=== PATIENT | female | born 1950 | race Two or more races ===

== ENCOUNTER → 2018-05-23 | Outpatient (CLI) | payer OTHER | END | disposition home or self-care (01) | LOC: LAB 08:00 | DX: Z01.818 Encounter for other preprocedural examination (principal) ==

== ENCOUNTER 2018-06-02 10:39 | Inpatient (IN) | payer OTHER ==
[2018-06-02] MEDS: LACTATED RINGER'S 1,000 ML IV* (10:00)
[2018-06-02] MEDS: TRANEXAMIC ACID 1,000 MG in NS 100 ML PRE-OP X1 IVPB (10:00)
[2018-06-02] MEDS: TRANEXAMIC ACID 1,000 MG in NS 100 ML INTRA-OP X1 IVPB (10:00)
[2018-06-02] MEDS: CEFAZOLIN 2 GM/50 ML (PMX) 50 ML IVPB (10:00)
[~2018-06-02 10:39] MED LIST: BUPIVACAINE 0.75%/DEXT (SPINAL) 2 ML INJ
[2018-06-02] MEDS: ONDANSETRON 4 MG INJ IV ×2 (12:30→17:55)
[2018-06-02] MEDS ORDERED: NALOXONE (0.4 MG/ML) INJ IV (12:30)
[2018-06-02] MEDS ORDERED: SENNA/DOCUSATE NA (8.6MG/50MG) TAB PO (12:30)
[2018-06-02] MEDS ORDERED: BETHANECHOL 25 MG TAB PO (12:30)
[2018-06-02] MEDS ORDERED: NA PHOSPHATE/BIPHOS 133 ML ENEMA PR (12:30)
[2018-06-02] MEDS ORDERED: MAGNESIUM HYDROXIDE 30ML CUP PO (12:30)
[2018-06-02] MEDS ORDERED: oxyCODONE 5 MG TAB PO ×2 (12:30)
[2018-06-02] MEDS ORDERED: DIPHENHYDRAMINE 50 MG INJ IV (12:30)
[2018-06-02] MEDS ORDERED: BISACODYL 10 MG SUPP PR (12:30)
[2018-06-02] MEDS ORDERED: CEFAZOLIN 1 GM INJ (12:38)
[2018-06-02] MEDS ORDERED: GLYCOPYRROLATE 0.4 MG INJ (12:38)
[2018-06-02] MEDS ORDERED: NEOSTIGMINE 3 MG/3 ML SYRINGE (12:38)
[2018-06-02] MEDS ORDERED: ROCURONIUM 50 MG INJ (12:38)
[2018-06-02] MEDS ORDERED: PROPOFOL 20 ML (12:38)
[2018-06-02] MEDS ORDERED: MIDAZOLAM 1 MG/ML 2 ML INJ (12:39)
[2018-06-02] MEDS ORDERED: FENTAnyl 50 MCG/ML VIAL ×2 (12:39→14:58)
[2018-06-02] MEDS ORDERED: ONDANSETRON 4 MG INJ (12:41)
[2018-06-02] MEDS ORDERED: DEXAMETHASONE 4 MG/ML 1 ML INJ (12:41)
[2018-06-02] MEDS ORDERED: ROPIVACAINE 0.5 % 30 ML VIAL (12:47)
[2018-06-02] MEDS ORDERED: morphine SULFATE/PF (10 MG/10 ML) INJ (12:49)
[2018-06-02] MEDS ORDERED: EPINEPHrine 1 MG INJ (13:11)
[2018-06-02] MEDS: BACITRACIN 50000 UNITS INJ (15:09)
[2018-06-02] MEDS: POLYMYXIN B 500000 UNIT INJ (15:10)
[2018-06-02] MEDS ORDERED: SUGAMMADEX SODIUM 200 MG/2 ML VIAL IV (15:46)
[2018-06-02] MEDS: CEFAZOLIN 1 GM/50 ML (PMX) 50 ML IVPB ×2 (16:50→21:09)
[2018-06-02] MEDS ORDERED: hydrALAzine 20 MG INJ IV (17:30)
[2018-06-02] MEDS: SOD CHLORIDE 0.9% 1,000 ML IV (17:42)
[2018-06-02] MEDS: ASPIRIN (EC) 325 MG TAB PO (17:55)
[2018-06-02] MEDS: DOCUSATE SODIUM 100 MG CAP PO (17:55)
[2018-06-02] MEDS: GABAPENTIN 100 MG CAP PO (21:09)
[2018-06-02] MEDS: NAPROXEN 500 MG TAB PO (23:04)
[2018-06-03] MEDS: ONDANSETRON 4 MG INJ IV ×2 (00:30→05:04)
[2018-06-03] MEDS: CEFAZOLIN 1 GM/50 ML (PMX) 50 ML IVPB (05:01)
[2018-06-03 05:03] LABS: ADD MAN DIFF? NO
[2018-06-03] MEDS: SOD CHLORIDE 0.9% 1,000 ML IV ×2 (05:03→16:30)
[2018-06-03 05:05] LABS: BASOPHILS % 0.1 % (0.0-2.0); HEMATOCRIT 34.3 % (37.0-47.0); HEMOGLOBIN 11.2 g/dl (12.0-16.0); LYMPHOCYTES # 0.7 10^3/ul (0.8-2.9); LYMPHOCYTES % 5.8 % (15.0-51.0); MEAN CORPUSCULAR HEMOGLOBIN 29.1 pg (29.0-33.0); MEAN CORPUSCULAR HGB CONC 32.7 g/dl (32.0-37.0); MEAN CORPUSCULAR VOLUME 89.1 fl (82.0-101.0); MEAN PLATELET VOLUME 11.9 fl (7.4-10.4); MONOCYTE # 0.7 10^3/ul (0.3-0.9); MONOCYTES % 5.2 % (0.0-11.0); NEUTROPHIL # 11.3 10^3/ul (1.6-7.5); NEUTROPHILS % 88.6 % (39.0-77.0); PLATELET COUNT 193 10^3/UL (140-415); RED BLOOD COUNT 3.85 10^6/ul (4.20-5.40); RED CELL DISTRIBUTION WIDTH 14.6 % (11.5-14.5)
[2018-06-03 05:05] LABS: WHITE BLOOD COUNT 12.8 10^3/ul (4.8-10.8)
[2018-06-03 05:26] LABS: ALANINE AMINOTRANSFERASE 32 IU/L (13-69); ALBUMIN 3.3 g/dl (3.3-4.9); ALKALINE PHOSPHATASE 85 IU/L (42-121); ANION GAP 14 (8-16); ASPARTATE AMINO TRANSFERASE 38 IU/L (15-46); BILIRUBIN,INDIRECT 0.1 mg/dl (0-1.1); BILIRUBIN,TOTAL 0.1 mg/dl (0.2-1.3); BLOOD UREA NITROGEN 11 mg/dl (7-20); CALCIUM 9.1 mg/dl (8.4-10.2); CARBON DIOXIDE 24 mmol/L (21-31); CHLORIDE 107 mmol/L (97-110); CHOLESTEROL 155 mg/dl (100-200); CREATININE 0.91 mg/dl (0.44-1.00); GLUCOSE 213 mg/dl (70-220); HDL CHOLESTEROL 51 mg/dl (35-98); LDL CHOLESTEROL,CALCULATED 94 mg/dl; MAGNESIUM 1.6 mg/dl (1.7-2.5); PHOSPHORUS 2.9 mg/dl (2.5-4.9); POTASSIUM 4.1 mmol/L (3.5-5.1); SODIUM 141 mmol/L (135-144); TOTAL PROTEIN 6.6 g/dl (6.1-8.1); TRIGLYCERIDES 50 mg/dl (0-149)
[2018-06-03 05:58] LABS: FREE THYROXINE INDEX (Calc) 3.68 ug/ml (0.65-3.89); T3 UPTAKE 41.8 % (23.5-40.5); T4 (THYROXINE) 8.8 ug/dl (5.5-11.0)
[2018-06-03 06:12] LABS: THYROID STIMULATING HORMONE 0.073 MIU/L (0.465-4.680)
[2018-06-03 06:48] LABS: ADD UMIC NO; UR ASCORBIC ACID NEGATIVE (NEGATIVE); UR BILIRUBIN (Dip) NEGATIVE (NEGATIVE); UR BLOOD (Dip) NEGATIVE (NEGATIVE); UR CLARITY CLEAR (CLEAR); UR COLOR STRAW (YELLOW); UR GLUCOSE (Dip) 2+ mg/dL (NEGATIVE); UR KETONES (Dip) NEGATIVE (NEGATIVE); UR LEUKOCYTE ESTERASE (Dip) NEGATIVE Leu/ul (NEGATIVE); UR NITRITE (Dip) NEGATIVE (NEGATIVE); UR SPECIFIC GRAVITY (Dip) 1.009 (1.003-1.030); UR TOTAL PROTEIN (Dip) NEGATIVE (NEGATIVE); UR UROBILINOGEN (Dip) NEGATIVE (NEGATIVE)
[2018-06-03] MEDS: LEVOTHYROXINE 125 MCG TAB PO (07:06)
[2018-06-03] MEDS: FERROUS FUMARATE (SR) TAB PO ×2 (08:29→20:29)
[2018-06-03] MEDS: HYDROCHLOROTHIAZIDE 25 MG TAB PO (08:29)
[2018-06-03] MEDS: GABAPENTIN 100 MG CAP PO ×2 (08:29→20:29)
[2018-06-03] MEDS: NAPROXEN 500 MG TAB PO ×2 (08:29→20:29)
[2018-06-03] MEDS: DOCUSATE SODIUM 100 MG CAP PO ×2 (08:29→20:29)
[2018-06-03] MEDS: ASPIRIN (EC) 325 MG TAB PO (08:29)
[2018-06-03] MEDS: LOSARTAN 50 MG TAB PO (08:30)
[2018-06-04] MEDS: SOD CHLORIDE 0.9% 1,000 ML IV (05:00)
[2018-06-04 06:04] LABS: ADD MAN DIFF? NO
[2018-06-04 06:09] LABS: BASOPHILS % 0.3 % (0.0-2.0); EOSINOPHILS # 0.2 10^3/ul (0.0-0.5); EOSINOPHILS % 2.1 % (0.0-7.0); HEMATOCRIT 30.8 % (37.0-47.0); LYMPHOCYTES # 2.3 10^3/ul (0.8-2.9); MEAN CORPUSCULAR HEMOGLOBIN 28.4 pg (29.0-33.0); MEAN CORPUSCULAR HGB CONC 32.5 g/dl (32.0-37.0); MEAN CORPUSCULAR VOLUME 87.5 fl (82.0-101.0); MEAN PLATELET VOLUME 12.2 fl (7.4-10.4); MONOCYTES % 8.4 % (0.0-11.0); NEUTROPHIL # 7.9 10^3/ul (1.6-7.5); NEUTROPHILS % 68.8 % (39.0-77.0); PLATELET COUNT 171 10^3/UL (140-415); RED BLOOD COUNT 3.52 10^6/ul (4.20-5.40)
[2018-06-04 06:09] LABS: WHITE BLOOD COUNT 11.5 10^3/ul (4.8-10.8)
[2018-06-04] MEDS: PANTOPRAZOLE (EC) 40 MG TAB PO (06:19)
[2018-06-04] MEDS: LEVOTHYROXINE 125 MCG TAB PO (06:19)
[2018-06-04] MEDS: oxyCODONE 5 MG TAB PO ×2 (06:21)
[2018-06-04 06:37] LABS: ANION GAP 8 (8-16); BLOOD UREA NITROGEN 14 mg/dl (7-20); CALCIUM 9.2 mg/dl (8.4-10.2); CARBON DIOXIDE 29 mmol/L (21-31); CHLORIDE 108 mmol/L (97-110); CREATININE 1.03 mg/dl (0.44-1.00); GLUCOSE 107 mg/dl (70-220); SODIUM 141 mmol/L (135-144)
[2018-06-04] MEDS: ASPIRIN (EC) 325 MG TAB PO (09:40)
[2018-06-04] MEDS: NAPROXEN 500 MG TAB PO (09:40)
[2018-06-04] MEDS: FERROUS FUMARATE (SR) TAB PO (09:40)
[2018-06-04] MEDS: GABAPENTIN 100 MG CAP PO (09:41)
[2018-06-04] MEDS: HYDROCHLOROTHIAZIDE 25 MG TAB PO (09:41)
[2018-06-04] MEDS: LOSARTAN 50 MG TAB PO (09:41)
[2018-06-04] MEDS: DOCUSATE SODIUM 100 MG CAP PO (09:41)
== END 2018-06-04 12:15 | DRG 468 ==
LOC: REC 10:39 → MS1 17:10
PROVIDERS: Orthopaedic Surgery
PROC: 0SRD0J9 Replacement of Left Knee Joint with Synthetic Substitute, Cemented, Open Approach (ICD-10-PCS; principal; 2018-06-02 13:00)
PROC: 0SPD0JZ Removal of Synthetic Substitute from Left Knee Joint, Open Approach (ICD-10-PCS; 2018-06-02 13:00)
DX: T84.033A Mechanical loosening of internal left knee prosthetic joint, initial encounter (principal); T84.023A Instability of internal left knee prosthesis, initial encounter; T84.84XA Pain due to internal orthopedic prosthetic devices, implants and grafts, initial encounter; Y83.8 Other surgical procedures as the cause of abnormal reaction of the patient, or of later complication, without mention of misadventure at the time of the procedure; E03.9 Hypothyroidism, unspecified; E78.5 Hyperlipidemia, unspecified; M81.0 Age-related osteoporosis without current pathological fracture; I12.9 Hypertensive chronic kidney disease with stage 1 through stage 4 chronic kidney disease, or unspecified chronic kidney disease; N18.9 Chronic kidney disease, unspecified; E66.9 Obesity, unspecified; Z68.31 Body mass index [BMI] 31.0-31.9, adult
CPT/HCPCS: 73560; 80048; 80053; 80061; 81003; 83036; 83735; 84100; 84436; 84443; 84479; 85025; 86850; 86900; 86901; 87070; 87075; 87081; 87086; 88304; 88311; 97110; 97116; 97162; 97166; 97530